=== PATIENT | male | born 1945 | race Caucasian/White ===

== ENCOUNTER → 2016-05-18 | Outpatient (CLI) | payer BC ==
[~2016-05-18] MED LIST: AMOX500C3 PO; ASPI81TA28 PO; LISI-461 PO; PSYL55.43 PO; SIMV5TAB2 PO; ZNTT/150 PO
== END | disposition home or self-care (01) ==
LOC: C.LABBC 10:20
PROVIDERS: ATTEND Internal Medicine Geriatric Medicine
DX: Z11.59 Encounter for screening for other viral diseases (principal)

== ENCOUNTER → 2016-05-24 | Outpatient (CLI) | payer BC ==
--- NOTE | 2016-05-24 10:40 | DIAGNOSTIC IMAGING REPORT ---
ULTRASOUND TESTES AND SCROTUM CLINICAL HISTORY: Testicular mass. COMPARISON STUDY: No priors. TECHNIQUE: Real-time, grayscale, and color Doppler sonography of the testes and scrotum is performed. Images are reviewed in the transverse and longitudinal planes. FINDINGS: The testes are normal in size and homogeneous in echotexture. The right testis measures 4.4 x 1.9 x 3.0 cm and the left testis measures 4.1 x 1.9 x 3.0 cm. No intratesticular mass is seen. A coarse calcification is noted in the left testis. Testicular blood flow is normal and symmetric. Normal Doppler waveforms are identified in both testes. The epididymal heads are normal in appearance. The right epididymal head measures 1.0 cm in length and the left epididymal head measures 1.4 cm in length. A 9 mm nodule is noted in the right epididymal tail. This demonstrates minimal internal flow on color imaging. No varicocele or hydrocele is seen. A scrotal darryl is noted on the left. IMPRESSION: 1. Unremarkable sonographic appearance of the testes. No testicular mass is seen. 2. There is an indeterminant 9 mm nodule in the right epididymal tail. This is pathologically indeterminant but statistically of low suspicion. Follow-up with urology is recommended. Precautionary 6 month follow-up ultrasound is recommended. Electronically signed by: Asher Villalpando M.D. 05/24/2016 10:38 AM Dictated Date/Time: 05/24/2016 10:36 AM
== END | disposition home or self-care (01) ==
LOC: C.ULTR 09:28
PROVIDERS: ATTEND Internal Medicine Geriatric Medicine
DX: Z11.59 Encounter for screening for other viral diseases (principal); N50.9 Disorder of male genital organs, unspecified

== ENCOUNTER → 2016-11-04 | Outpatient (CLI) | payer BC ==
[2016-11-04 16:36] LABS: BASO % 0.4 %; BASO ABS # 0.03 K/uL (0-0.2); COMPLETE YES; EOS % 10.6 %; HEMATOCRIT 41.7 % (42-52); IG% 0.1 %; LYMPH % 22.6 %; LYMPH ABS # 1.52 K/uL (1.2-3.4); MEAN CELL VOLUME 94.8 fL (80-100); MEAN CORPUSCULAR HEMOGLOBIN 32.3 pg (25-34); MEAN CORPUSCULAR HGB CONC 34.1 g/dl (32-36); MEAN PLATELET VOLUME 10.6 fL (7.4-10.4); MONO % 9.7 %; NEUT % 56.6 %; PLATELET COUNT 177 K/uL (130-400); WHITE BLOOD COUNT 6.72 K/uL (4.8-10.8)
[2016-11-04 16:47] LABS: ALT/SGPT 34 U/L (12-78); AST/SGOT 24 U/L (15-37); BLOOD UREA NITROGEN 26 mg/dl (7-18); CALCIUM 9.5 mg/dl (8.5-10.1); CARBON DIOXIDE 26 mmol/L (21-32); CHLORIDE 106 mmol/L (98-107); CHOLESTEROL 135 mg/dl (0-200); CREATININE 0.95 mg/dl (0.60-1.40); GLUCOSE 106 mg/dl (70-99); POTASSIUM 4.4 mmol/L (3.5-5.1); SODIUM 137 mmol/L (136-145)
[2016-11-04 16:58] LABS: ALB/GLOB RATIO 1.2 (0.9-2); ALKALINE PHOSPHATASE 76 U/L (45-117); CHOLESTEROL/HDL RATIO 2.3; HDL CHOLESTEROL 59 mg/dl; LDL CHOLESTEROL CALCULATED 62 mg/dl; PROSTATE SPECIFIC ANTIGEN 0.013 ng/ml (0.000-4.000); TRIGLYCERIDES 71 mg/dl (0-150); VERY LOW DENSITY LIPOPROT CALC 14 mg/dl
[2016-11-05 06:55] LABS: ESTIMATED AVERAGE GLUCOSE 126 mg/dl; HA1C FLAG Normal (Normal)
--- NOTE | 2016-11-16 13:39 | CODING QUERY MEDICAL NECESSITY ---
SUPPORTING DIAGNOSIS NEEDED A supporting diagnosis is required for the test/procedure performed on this patient in order for us to be reimbursed by the patient's insurance. Please provide a supporting diagnosis for the following test/procedure listed below next to the test name along with your signature. *If there is no additional diagnosis for this patient that would support the following test/procedure please document that below next to the test/procedure. Test(s)/Procedure(s) that require a supporting diagnosis: * VITAMIN D, 25-HYDROXY DIAGNOSIS: Provider Signature: Date: Thank you Syeda Li [employer] Once completed, please kindly fax back to [phone] For questions please call [phone]
== END | disposition home or self-care (01) ==
LOC: C.LABBC 14:34
PROVIDERS: ATTEND Internal Medicine Geriatric Medicine
DX: R73.9 Hyperglycemia, unspecified (principal); I10 Essential (primary) hypertension; I71.2 Thoracic aortic aneurysm, without rupture; I25.10 Atherosclerotic heart disease of native coronary artery without angina pectoris; E78.5 Hyperlipidemia, unspecified; C61 Malignant neoplasm of prostate

== ENCOUNTER → 2016-12-05 | Outpatient (CLI) | payer BC ==
--- NOTE | 2016-12-05 09:56 | DIAGNOSTIC IMAGING REPORT ---
(TESTICULAR) SCROTUM-CONT HISTORY: Mass. Nodule. C61 Adenocarcinoma of [id number] Mass of epididymis latex gurwinder COMPARISON: 05/24/2016 FINDINGS: Right testis: Uniform echogenicity. Maximum dimension 4.6 cm. Normal vascular flow. 7 mm nodule epididymal tail somewhat diminished prominence in the prior study. Left testis: Maximum dimension 3.8 cm. Normal vascular flow. Small hydrocele. Small varicocele. IMPRESSION: 1. Normal testes bilaterally. 2. Right epididymal tail nodule mildly diminished in volume from the prior study with a current maximum dimension of 7 mm. 3. Small left-sided hydrocele and varicocele unchanged The above report was generated using voice recognition software. It may contain grammatical, syntax or spelling errors. Electronically signed by: Jaylon Conrad M.D. 12/05/2016 9:55 AM Dictated Date/Time: 12/05/2016 9:52 AM
== END | disposition home or self-care (01) ==
LOC: C.ULTR 09:14
PROVIDERS: ATTEND Urology
DX: C61 Malignant neoplasm of prostate (principal); N50.9 Disorder of male genital organs, unspecified; I86.1 Scrotal varices; N43.3 Hydrocele, unspecified

== ENCOUNTER → 2016-12-12 | Outpatient (CLI) | payer BC ==
[~2016-12-12] MED LIST changes: +OPTIRAY 320 IV PRN
--- NOTE | 2016-12-12 12:28 | DIAGNOSTIC IMAGING REPORT ---
AORTIC ANEURYSM RETROPERI CLINICAL HISTORY: 71 years-old Male with Z00.00 Health BunyjmkxtfnM68.2 Aneurysm of thoracic aorta. Screening study for abdominal aortic aneurysm. COMPARISON: Ultrasound 03/26/2010 TECHNIQUE: Multiple real time sonographic images of the abdominal aorta were obtained assessing vogt-scale appearance as well as color. Doppler and spectral waveform analysis. FINDINGS: MEASUREMENTS: Proximal Aorta: 2.5 x 2.2 cm Mid Aorta: 2.0 x 2.0 cm Distal Aorta: 1.7 x 1.8 cm Right Common Iliac Artery: 1.1 cm Left Common Iliac Artery: 1.2 cm Pulsatile color Doppler flow and a normal spectral waveform are seen within the proximal aorta. Scattered mixed plaquing is seen throughout the dominant aorta. IMPRESSION: Atherosclerotic plaquing of the abdominal aorta without evidence of aneurysm. The above report was generated using voice recognition software. It may contain grammatical, syntax or spelling errors. Electronically signed by: Irving Goldman M.D. 12/12/2016 12:27 PM Dictated Date/Time: 12/12/2016 12:25 PM
--- NOTE | 2016-12-12 13:34 | DIAGNOSTIC IMAGING REPORT ---
CHEST COMBO ANGIOGRAPHY CLINICAL HISTORY: 71 years-old Male presenting with THORACIC AORTA ANEURYSM. TECHNIQUE: Multidetector CT angiography of the chest was performed after the administration of intravenous contrast. 3-D volumetric and/or maximum intensity projection (MIP) images were subsequently reconstructed for review. IV contrast: 119 mL of Optiray 320. A dose lowering technique was used consistent with the principles of ALARA (as low as reasonably achievable). COMPARISON: Noncontrast chest CT from 06/08/2011. CT DOSE (mGy.cm): The estimated cumulative dose is 502.98 mGy.cm. FINDINGS: Dowel Inspector topogram: Median sternotomy wires noted. Vasculature: Prosthetic aortic valve in place. Allowing for nongated technique, no evidence of dissection or acute aortic injury or postsurgical changes of the ascending aorta with the proximal aortic arch having a slightly larger diameter. The ascending aorta measures 3.0 cm in diameter versus the proximal arch, which measures 3.9 cm in diameter. This is similar to prior exam in 2012. Three-vessel arch configuration. Descending aorta normal. On soft tissue windows, normal thyroid and thoracic inlet. No axillary, supraclavicular, mediastinal, or hilar lymphadenopathy. Main pulmonary artery is normal in size. Normal heart size. No pericardial or pleural effusion. Upper abdomen normal. On lung windows, dependent changes in the right lower lobe likely atelectasis. Solid 7 mm nodule in the paramediastinal right lower lobe (series 7 image 167), previously 7 mm. No new pulmonary nodule. On bone windows, median sternotomy is well healed. Mild degenerative changes of the thoracic spine. IMPRESSION: 1. Postsurgical changes of the ascending aorta and prosthetic aortic valve. Mild discontinuity of the diameter of the osseous and aorta versus proximal arch similar to prior exam in 2012. No recurrent aneurysm. Allowing for nongated technique, no dissection or acute aortic injury. 2. Stable solid 7 mm pulmonary nodule in the right lower lobe, consistent with a benign etiology. No new pulmonary nodule. Electronically signed by: Paul Oden M.D. 12/12/2016 1:33 PM Dictated Date/Time: 12/12/2016 1:26 PM
== END | disposition home or self-care (01) ==
LOC: C.CTS 11:01
PROVIDERS: ATTEND Internal Medicine Cardiovascular Disease
DX: Z00.00 Encounter for general adult medical examination without abnormal findings (principal); I71.2 Thoracic aortic aneurysm, without rupture; R91.1 Solitary pulmonary nodule

== ENCOUNTER → 2017-01-27 | Outpatient (CLI) | payer BC ==
[~2017-01-27] MED LIST changes: -OPTIRAY 320 IV PRN
[2017-01-27 13:38] LABS: ALT/SGPT 36 U/L (12-78); AST/SGOT 24 U/L (15-37)
== END | disposition home or self-care (01) ==
LOC: C.LABBC 10:57
PROVIDERS: ATTEND Internal Medicine Cardiovascular Disease
DX: E78.5 Hyperlipidemia, unspecified (principal); I25.10 Atherosclerotic heart disease of native coronary artery without angina pectoris

== ENCOUNTER → 2017-11-02 | Outpatient (CLI) | payer BC ==
[~2017-11-02] MED LIST changes: +RANI150T85 PO; -ZNTT/150 PO
--- NOTE | 2017-11-02 09:08 | DIAGNOSTIC IMAGING REPORT ---
CHEST COMBO ANGIOGRAPHY CLINICAL HISTORY: 72 years-old Male presenting with history of thoracic aortic aneurysm repair, asymptomatic, follow-up. TECHNIQUE: Multidetector CT angiography of the chest was performed before and after the administration of intravenous contrast. 3-D volumetric and/or maximum intensity projection (MIP) images were subsequently reconstructed for review. IV contrast: 118 mL of Optiray 320. A dose lowering technique was used consistent with the principles of ALARA (as low as reasonably achievable). COMPARISON: 12/12/2016. CT DOSE (mGy.cm): The estimated cumulative dose is 397.81 mGy.cm. FINDINGS: [employer] Worker topogram: Median sternotomy wires with prosthetic aortic valve. Vasculature: The study is adequate for assessment of the aorta. Precontrast imaging demonstrates the prosthetic aortic valve as well as postsurgical changes of the ascending aorta. There is slight caliber change with the proximal aortic arch. The ascending aorta measures 3.2 cm in diameter versus the proximal arch, which measures 4 cm in diameter. This is similar to prior exam. Postcontrast imaging demonstrates a patent aorta without evidence of luminal irregularity or pseudoaneurysm. Origins of the aortic arch branch vessels patent. Descending thoracic aorta normal apart from mild noncalcified atherosclerotic plaque. Allowing for timing of the contrast bolus, no gross evidence of a filling defect within the pulmonary arteries to suggest embolus. Main pulmonary artery is not enlarged. No flattening of the interventricular septum. No intracardiac filling defect. No reflux of contrast into the hepatic veins. Remaining chest: On soft tissue windows, few small thyroid nodules. No axillary, supraclavicular, hilar, or mediastinal lymphadenopathy. Normal heart size. No pericardial or pleural effusion. Small focus of arterial hyperenhancement in the left hepatic lobe likely flash filling hemangioma (series 7 image 293), unchanged. On lung windows, minimal dependent changes likely atelectasis. Stable solid peripheral 7 mm right lower lobe nodule (series 7 image 173). This nodule has been stable consistent with benign etiology. Mild pleural parenchymal scarring at the apices greater on the left. No new pulmonary nodule. Airways patent. Airways patent. On bone windows, normal osseous structures. IMPRESSION: 1. No change in the postsurgical appearance of the ascending aorta status post aneurysm repair. No change in the slight caliber differential between the proximal aortic arch and ascending aorta. No acute aortic injury. Patent branch vessels. 2. No acute intrathoracic pathology. Electronically signed by: Paul Oden M.D. 11/02/2017 9:06 AM Dictated Date/Time: 11/02/2017 8:51 AM
== END | disposition home or self-care (01) ==
LOC: C.CTS 08:28
PROVIDERS: ATTEND Internal Medicine Cardiovascular Disease
DX: I71.2 Thoracic aortic aneurysm, without rupture (principal)

== ENCOUNTER → 2017-11-07 | Outpatient (CLI) | payer BC ==
[2017-11-07 15:26] LABS: BASO % 1.2 %; BASO ABS # 0.05 K/uL (0-0.2); EOS ABS # 0.21 K/uL (0-0.5); HEMOGLOBIN 14.2 g/dL (14.0-18.0); LYMPH % 25.2 %; LYMPH ABS # 1.06 K/uL (1.2-3.4); MEAN CELL VOLUME 95.9 fL (80-100); MEAN CORPUSCULAR HEMOGLOBIN 32.4 pg (25-34); MEAN CORPUSCULAR HGB CONC 33.8 g/dl (32-36); MONO % 16.9 %; MONO ABS # 0.71 K/uL (0.11-0.59); NEUT % 51.7 %; NEUT ABS # 2.18 K/uL (1.4-6.5); PLATELET COUNT 154 K/uL (130-400); RED CELL DISTRIBUTION WIDTH CV 12.5 % (11.5-14.5); WHITE BLOOD COUNT 4.21 K/uL (4.8-10.8)
[2017-11-07 15:57] LABS: ALKALINE PHOSPHATASE 96 U/L (45-117); ALT/SGPT 40 U/L (12-78); AST/SGOT 31 U/L (15-37); BLOOD UREA NITROGEN 21 mg/dl (7-18); CALCIUM 9.7 mg/dl (8.5-10.1); CARBON DIOXIDE 26 mmol/L (21-32); CHOLESTEROL 105 mg/dl (0-200); CREATININE 0.99 mg/dl (0.60-1.40); GLUCOSE 90 mg/dl (70-99); LDL CHOLESTEROL CALCULATED 32 mg/dl; POTASSIUM 4.2 mmol/L (3.5-5.1); SODIUM 136 mmol/L (136-145); TOTAL PROTEIN 7.1 gm/dl (6.4-8.2)
[2017-11-08 06:01] LABS: HEMOGLOBIN A1C 5.8 % (4.5-5.6)
== END | disposition home or self-care (01) ==
LOC: C.LAB 15:04
PROVIDERS: ATTEND Internal Medicine Geriatric Medicine
DX: R73.9 Hyperglycemia, unspecified (principal); G43.909 Migraine, unspecified, not intractable, without status migrainosus; I10 Essential (primary) hypertension; E78.5 Hyperlipidemia, unspecified; I71.2 Thoracic aortic aneurysm, without rupture; I25.10 Atherosclerotic heart disease of native coronary artery without angina pectoris

== ENCOUNTER 2023-09-06 10:03 | Inpatient (IN) ==
[2023-09-06 11:13] LABS: Basophils # (auto) 0.06 K/uL (0.00-0.20); Basophils % (auto) 0.8 %; Eosinophils # (auto) 0.18 K/uL (0.00-0.50); Eosinophils % (auto) 2.5 %; Hematocrit (blood only) 39.9 % (42.0-52.0); Hemoglobin 13.3 g/dl (14.0-18.0); Immature Granulocytes # (auto) 0.02 K/uL (0.01-0.20); Immature Granulocytes % (auto) 0.3 %; Lymphocytes % (auto) 15.2 %; Mean Corpuscular Hgb Conc 33.3 g/dL (32.0-36.0); Mean Corpuscular Volume 96.1 fL (80.0-100.0); Mean Platelet Volume 10.5 fL (9.4-12.4); Monocytes # (auto) 0.92 K/uL (0.11-0.59); Monocytes % (auto) 12.7 %; Neutrophils # (auto) 4.94 K/uL (1.40-6.50); Neutrophils % (auto) 68.5 %; Platelet Count 152 K/uL (130-400); RDW Coefficient of Variation 12.2 % (11.5-14.5); Red Blood Count 4.15 M/uL (4.70-6.10); White Blood Count 7.22 K/ul (4.8-10.8)
--- NOTE | 2023-09-06 11:23 | Emergency Department Note ---
Impression & Plan Septic olecranon bursitis of right elbow, Cellulitis, S/P aortic valve replacement with bioprosthetic valve ED Provider Note NAME: NIDHI FARRAR AGE: 78 SEX: M : 1945 ARRIVES VIA: Walk-In INFORMANT: Patient ED PROVIDER(S): Haresh Holly MD CHIEF COMPLAINT: Elbow infection, referrec. PLAN: Disposition: Admit MEDICAL DECISION MAKING: The patient is a pleasant 78-year-old gentleman with a past medical history of CAD, CKD, hypertension, hyperlipidemia, GERD, history of aortic valve replacement with bioprosthetic valve who presents to the emergency department via walk-in accompanied by his referred by [facility] after being seen for evaluation for cellulitis of his right elbow after his initial evaluation 2 days ago for the same where he was started on doxycycline. Patient reports his symptoms began a week or so ago with swelling of his elbow first then slowly with some redness developing and spread and tightness in his elbow. Reports there had been a carpio which he had picked at couple of days ago after he was initially seen and yellowish clear liquid had drained out significantly. He reports he had some more discharge this morning prior to arrival. He admits that he had picked at this with his bare hands and probably should not have done that he denies any fevers, chills, cough congestion, chest pain or shortness of breath. He denies any history of recurrent skin infections. On evaluation patient is no acute distress, afebrile with stable vital signs. His right elbow demonstrates swelling discretely of the right olecranon bursa with erythema extending to the distal upper arm and proximal forearm circumferentially. There is no overt induration. There is no crepitus. Patient did consent to aspiration which was performed per procedure note taking advantage of residual tract that had persisted correlating with the patient's report of a white pustule. Yellow cloudy fluid was obtained and sent for cell counts cultures. Cell counts demonstrate WBCs of 7000k with 90% polynuclear cells and so suggestive of septic bursitis. Given the patient's Progressive erythema he does agree with plan for admission for IV antibiotics. 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 WBC and platelets within normal limits. H/H similar to prior range values. There is no left shift. ESR is normal. CRP is mildly elevated at 2.8, nonspecific. Chemistry without metabolic acidosis. Electrolytes and LFTs are unremarkable. Procalcitonin is not elevated. Case was discussed with Dr. Mcclelland, [facility] hospitalist, who will evaluate the patient for admission. Triage Nursing notes reviewed and agree them. Prior/external medical records reviewed Vital Signs: reviewed Differential diagnosis: Cellulitis, abscess, MRSA infection, DVT, necrotizing fasciitis, dermatitis, drug eruption, allergic reaction, as well as other pathologies. ER treatment provided: See below. Diagnostics interpreted by me: Cardiac Monitoring: An order for continuous cardiac monitoring was placed and demonstrated normal sinus rhythm, 74 bpm, no ectopy. Laboratory studies: See below Imaging studies: See below Consultation(s): Dr. Mcclelland [facility] hospitalist HPI: The patient is a pleasant 78-year-old gentleman with a past medical history of CAD, CKD, hypertension, hyperlipidemia, GERD, history of aortic valve replacement with bioprosthetic valve who presents to the emergency department via walk-in accompanied by his referred by [facility] after being seen for evaluation for cellulitis of his right elbow after his initial evaluation 2 days ago for the same where he was started on doxycycline. Patient reports his symptoms began a week or so ago with swelling of his elbow first then slowly with some redness developing and spread and tightness in his elbow. Reports there had been a carpio which he had picked at couple of days ago after he was initially seen and yellowish clear liquid had drained out significantly. He reports he had some more discharge this morning prior to arrival. He admits that he had picked at this with his bare hands and probably should not have done that he denies any fevers, chills, cough congestion, chest pain or shortness of breath. He denies any history of recurrent skin infections. ROS: See above HPI for pertinent positives & negatives. A total of 10 systems reviewed and were otherwise negative. VITALS:See Below PHYSICAL EXAMINATION: GENERAL: Awake, alert, well-appearing, in no distress HENT: Normocephalic, atraumatic. Oropharynx unremarkable. EYES: Normal conjunctiva. Sclera non-icteric. NECK: Supple. No nuchal rigidity. FROM. No JVD. RESPIRATORY: Clear to auscultation. CARDIAC: Regular rate, normal rhythm. Extremities warm and well perfused. Pulses equal. ABDOMEN: Soft, non-distended. No tenderness to palpation. No rebound or guarding. No masses. MUSCULOSKELETAL: Chest examination reveals no tenderness. The back is symmetrical on inspection without obvious abnormality. There is no CVA tenderness to palpation. Right olecranon bursitis with swelling of the olecranon bursa and surrounding erythema extending to the distal upper arm and proximal forearm. There is mild warmth. No significant induration. LOWER EXTREMITIES: Calves are equal size bilaterally and non-tender. No edema. No discoloration. NEURO: Normal sensorium. No sensory or motor deficits noted. SKIN: No rash or jaundice noted. ED COURSE: Procedures: Olecranon bursal aspiration Indication: Bursitis Location: Right olecranon bursa Verbal consent was obtained. The skin was prepped with chlorhexadine and a sterile field set. Right olecranon bursa was entered with 18g needle and 8cc of yellow mildly cloudy fluid was removed. Detailed instructions and signs and symptoms of worsening infection reviewed with the patient. No complications and the patient tolerated the procedure well. Fluid sent for bursal fluid studies. Haresh Holly MD Past Med/Surg History Problem List (Updated 09/06/23 @ 12:40 by Paul Mcclelland MD) HLD (hyperlipidemia) Cellulitis (Acute) Septic olecranon bursitis of right elbow (Acute) Thyroid nodule Anemia, mild Contact dermatitis Solitary pulmonary nodule (Acute) S/P aortic valve replacement with bioprosthetic valve (Acute) Multiple thyroid nodules (Acute) Hyperglycemia (Acute) Glaucoma (Acute) Dyslipidemia (Acute) CAD in [place] artery (Acute) Aortic stenosis (Acute) Aneurysm of thoracic aorta (Acute) Adenocarcinoma of prostate (Acute) History of thoracic aortic aneurysm repair GERD (gastroesophageal reflux disease) (Chronic) Hypertension (Chronic) Medical History (Updated 09/06/23 @ 12:40 by Paul Mcclelland MD) History of needle biopsy History of bicuspid aortic valve Surgical History (Updated 09/06/23 @ 23:58 by Haresh Holly MD) H/O colonoscopy History of tonsillectomy and adenoidectomy History of strabismus surgery H/O inguinal hernia repair History of prostatectomy Family History Father Coronary heart disease Myocardial infarction Sister Diabetes Rheumatoid arthritis Thyroid disorder Mother Breast cancer Sister Breast cancer Uncle Prostate cancer Aunt Colon cancer Denies family history of Ovarian cancer Social History Smoking Status: Former smoker Tobacco Type: Smokeless Tobacco (Dip or Chew) Hx Alcohol Use: Yes Alcohol type: beer Alcohol Intake Frequency: 4 or More x per/Week Alcohol Intake Frequency Comment: before dinner Hx Substance Use: No Preferred Language: [place] Communication Ability: Effective Visual Impairment: No Limitations Hearing Ability: Normal 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 Operations Required: No Beliefs That Will Affect Care: None marital status: Current Living Situation: Spouse current occupational status: retired Feels Safe at Home: Yes Safety Concerns: Feels Safe At This Time Childhood Exposure to Second-Hand Smoke: Yes Dental Care, Regularly: Yes Physical Activity Frequency: Daily Seatbelt Use: always Sunscreen Use: Yes Assistive Devices: Glasses Allergies Allergies Allergy/AdvReac Type Severity Reaction Status Date / Time latex Allergy Unknown rash;itchin Verified 09/06/23 09:08 g neomycin Allergy Unknown rash and Verified 09/06/23 09:08 itching; ok w/bacitracin polymyxin B Allergy Unknown rash and Verified 09/06/23 09:08 itching; ok w/bacitracin shellfish derived Allergy Verified 09/06/23 09:08 shrimp AdvReac Unknown nausea;vomiting Verified 09/06/23 09:08 and indigestion tamsulosin AdvReac Unknown NAUSEA Verified 09/06/23 09:08 Home Meds Home Medications Medication Instructions Recorded Confirmed aspirin 81 mg tablet,delayed 81 mg PO DAILY 11/11/18 09/06/23 release cholecalciferol (vitamin D3) 25 2,000 unit PO DAILY 12/10/20 09/06/23 mcg (1,000 unit) capsule polyethylene glycol 3350 17 gram 17 g PO DAILY PRN Constipation 12/10/21 09/06/23 oral powder packet (Miralax) ascorbate calcium (vitamin C) 500 500 mg PO DAILY 10/04/22 09/06/23 mg tablet amoxicillin 500 mg capsule 2,000 mg PO .COMPLEX PRN Other 09/06/23 09/06/23 Previous Rx's Medication Instructions Recorded lisinopril 10 mg tablet 10 mg PO DAILY #90 tabs 09/25/23 atorvastatin 40 mg tablet 40 mg PO HS #90 tabs 02/01/23 doxycycline hyclate 100 mg capsule 100 mg PO BID 10 days #20 caps 09/04/23 Results & Data (ED) Vital Signs Vital Signs - 24 hr 09/06/23 10:06 09/06/23 10:50 09/06/23 11:42 Temperature 37.4 C Temperature Source Temporal Artery Scan Pulse Rate 74 66 Pulse Rate from SpO2 Sensor 66 Respiratory Rate 14 18 Blood Pressure 128/77 Blood Pressure Mean 94 Pulse Oximetry 95 96 95 Oxygen Delivery Method Room Air Room Air Sepsis New/Unexplained Change in Mental Status No Sepsis Action Taken by Nursing No Action Required 09/06/23 12:03 Temperature Temperature Source Pulse Rate 67 Pulse Rate from SpO2 Sensor 66 Respiratory Rate 21 Blood Pressure Blood Pressure Mean Pulse Oximetry 96 Oxygen Delivery Method Sepsis New/Unexplained Change in Mental Status Sepsis Action Taken by Nursing Laboratory Data Attestation: I reviewed the patient's lab results. 09/06/23 10:46 09/06/23 10:46 Lab Results 09/06/23 09/06/23 Range/Units 10:46 11:08 WBC 7.22 (4.8-10.8) K/ul RBC 4.15 L (4.70-6.10) M/uL Hgb 13.3 L (14.0-18.0) g/dl Hct 39.9 L (42.0-52.0) % MCV 96.1 (80.0-100.0) fL MCH 32.0 (25.0-34.0) pg MCHC 33.3 (32.0-36.0) g/dL RDW Std Deviation 43.0 (36.4-46.3) fL RDW Coeff of Karis 12.2 (11.5-14.5) % Plt Count 152 (130-400) K/uL MPV 10.5 (9.4-12.4) fL Immature Gran % (Auto) 0.3 % Neut % (Auto) 68.5 % Lymph % (Auto) 15.2 % Wood % (Auto) 12.7 % Eos % (Auto) 2.5 % Baso % (Auto) 0.8 % Neut # (Auto) 4.94 (1.40-6.50) K/uL Lymph # (Auto) 1.10 L (1.20-3.40) K/uL Wood # (Auto) 0.92 H (0.11-0.59) K/uL Eos # (Auto) 0.18 (0.00-0.50) K/uL Baso # (Auto) 0.06 (0.00-0.20) K/uL Immature Gran # (Auto) 0.02 (0.01-0.20) K/uL ESR 15 (0-20) mm/hr Sodium 135 L (136-145) mmol/L Potassium 4.0 (3.5-5.1) mmol/L Chloride 107 (98-107) mmol/L Carbon Dioxide 25 (21-32) mmol/L Anion Gap 3 (3-11) BUN 27 H (6-23) mg/dl Creatinine 0.99 (0.6-1.4) mg/dl Est Cr Clr Drug Dosing 61.5 ml/min Est GFR ( Amer) 84.2 ml/min Est GFR (Non-Af Amer) 72.6 ml/min BUN/Creatinine Ratio 27.3 H (10-20) Glucose 119 H (70-99(Fasting)) mg/dl Calcium 10.5 H (8.6-10.3) mg/dl Total Bilirubin 0.4 (0.2-1.0) mg/dl AST 23 (13-39) U/L ALT 23 (7-52) U/L Alkaline Phosphatase 63 (34-104) U/L C-Reactive Protein 2.80 H (0-0.5) mg/dl Total Protein 6.6 (6.0-8.3) gm/dl Albumin 4.1 (3.4-5.0) gm/dl Globulin 2.5 (2.5-4.0) gm/dl Albumin/Globulin Ratio 1.6 (0.9-2) Procalcitonin 0.03 (0-0.5) ng/ml Fluid Comment Synovial Source Right Elbow Synovial Color Yellow Synovial Appearance Cloudy Synovial WBC (Auto) 7615 H (0-200) /ul Synovial RBC (Auto) 4000 /uL Synovial Polynuclear % 90.4 % Synovial Mononuclear % 9.6 % Synovial Crystals Administered Medications Ampicillin Sodium/Sulbactam Sodium 3,000 mg/ Sodium Chloride 100 mls @ 100 mls/hr IV Q6H [facility] Stop: 09/08/23 17:59 Last Admin: 09/06/23 23:48 Dose: 100 mls/hr Documented By: Infusion: 09/06/23 21:03 Dose: Infused Documented By: Admin: 09/06/23 18:13 Dose: 100 mls/hr Documented By: HARI Discontinued Medications Piperacillin Sod/Tazobactam Sod (Zosyn) 4.5 gm in 100 mls @ 200 mls/hr IV NOW ONE Stop: 09/06/23 11:47 Last Infusion: 09/06/23 12:15 Dose: Infused Documented By: JEAN PIERRE Admin: 09/06/23 11:40 Dose: 200 mls/hr Documented By: JEAN PIERRE Daptomycin 425 mg/ Syringe 8.5 mls @ 4.25 mls/min IV NOW STA; Protocol Stop: 09/06/23 11:19 Last Admin: 09/06/23 11:42 Dose: 4.25 mls/min Documented By: JEAN PIERRE Imaging Data Radiologist's Impression: Elbow X-Ray 09/06/23 11:22 XR elbow RT min 3V routine CLINICAL HISTORY: ?septic bursitis TECHNIQUE: 3 views of the right elbow were obtained. Comparison: None available at the time of this dictation. FINDINGS: There is no evidence of an acute fracture. Degenerative changes are seen in the elbow joint. There is no prominence of the anterior or posterior fat pads to suggest an effusion. No soft tissue abnormality is seen. IMPRESSION: No acute bony abnormality. No joint effusion is seen. ACT 112: Negative or not required by law. Electronically signed by: Alvino Coffey M.D. 09/06/2023 11:54 AM Discharge Plan Visit Data Chief Complaint: Elbow Injury/Pain Stated Complaint: R ELBOW INFECTION, NEEDS IV, REF BY DOC ED Provider: Haresh Holly Discharge Problem: Septic olecranon bursitis of right elbow, Cellulitis, S/P aortic valve replacement with bioprosthetic valve Patient Disposition: Admitted As Inpatient Discharge Instructions Interventions: ED Discharge Assessment Last Done: 09/06/23 15:42 Discharge Problem: Cellulitis Qualifiers: Site of cellulitis: extremity Site of cellulitis of extremity: upper extremity Laterality: right Qualified Code(s): L03.113 - Cellulitis of right upper limb
[2023-09-06 11:25] LABS: Albumin Globulin Ratio 1.6 (0.9-2); Albumin Level 4.1 gm/dl (3.4-5.0); BUN Creatinine Ratio 27.3 (10-20); Bilirubin,Total 0.4 mg/dl (0.2-1.0); C Reactive Protein 2.8 mg/dl (0-0.5); Calcium 10.5 mg/dl (8.6-10.3); Creatinine Clr Calc Pharmacy 61.5 ml/min; Est GFR (African American) 84.2 ml/min; Est GFR (Non-African American) 72.6 ml/min; Globulin 2.5 gm/dl (2.5-4.0); Total Protein 6.6 gm/dl (6.0-8.3)
[2023-09-06] MEDS: PIPERACILLIN/TAZOBACTAM 4.5 GM/100 ML BAG IV ONE (11:40)
[2023-09-06] MEDS: DAPTOmycin 425 MG in SYRINGE 0 ML IV STA (11:42)
--- NOTE | 2023-09-06 11:55 | XRay Report ---
XR elbow RT min 3V routine CLINICAL HISTORY: ?septic bursitis TECHNIQUE: 3 views of the right elbow were obtained. Comparison: None available at the time of this dictation. FINDINGS: There is no evidence of an acute fracture. Degenerative changes are seen in the elbow joint. There is no prominence of the anterior or posterior fat pads to suggest an effusion. No soft tissue abnormali ty is seen. IMPRESSION: No acute bony abnormality. No joint effusion is seen. ACT 112: Negative or not required by law. Electronically signed by: Alvino Coffey M.D. 09/06/2023 11:54 AM
[2023-09-06 12:17] LABS: Appearance Synovial Fluid Cloudy; Color Synovial Fluid Yellow; Mononuclear WBC Synovial 9.6 %; Polynuclear WBC Synovial 90.4 %; RBC Synovial Fluid Auto 4000 /uL; Source Synovial Fluid Right Elbow; WBC Synovial Fluid Auto 7615 /ul (0-200)
--- NOTE | 2023-09-06 12:35 | History & Physical Report ---
Date of Service September 06, 2023 Assessment & Plan (1) Septic olecranon bursitis of right elbow: Plan: Right olecranon bursitis Fluid aspirate pending culture. Initial fluid was with 7615 white blood cells consistent with infectious bursitis No leukocytosis Elbow x-ray is without bony abnormality or joint effusion Admitted on Zosyn/daptomycin pending culture results. Patient is at increased risk of graft seeding due to his history of aortic aneurysm repair and bioprosthetic AVR, recommend broad coverage including MRSA coverage while cultures and bc pending (2) S/P aortic valve replacement with bioprosthetic valve: Plan: Bicuspid AV No acute cardiac symptoms. He is at increased risk of endocarditis for bacteremia. BC were ordered and are pending (3) HLD (hyperlipidemia): Plan: Hyperlipidemia Statin held while on daptomycin Chronic stable issues History of AAA s/p repair: On every 2 year surveillance. No\shoulder blade plain, no acute symptoms. Continue outpatient surveillance. Hypertension: Well-controlled, continue lisinopril History of CAD: No acute cardiac symptoms, no preceding anginal/stiff neck symptoms Plan DVT prophylaxis: Lovenox Disposition: Medical s full code Diet: Heart healthy CODE STATUS: Medical/surgical History of Present Illness Primary Care Provider: Esteban Mukherjee MD Mr. Madrigal is a 78-year-old male with past medical history of bioprosthetic AV replacement, CAD, prostate adenocarcinoma, GERD, hypertension, past thoracic aortic aneurysm repair, and thyroid nodules presents on referral from [facility] urgent care for right elbow cellulitis failing outpatient treatment and with continued expansion over the last 7 days. Patient was suspected to have right olecranon bursitis while in the ER, this was aspirated and a cc of cloudy fluid was removed and sent for culture/analysis. Carlos Alberto was seen at the bedside with his . He reports his symptoms actually started 3 days ago, on Monday. Noted some swelling and pain at his elbow which gradually worsened and yesterday pulled a small amount of yellow crust off and it had purulent drainage. Elbow has continued to be warm, red, and tender. He has not had fevers chills or sweats. It is tender with movement but feels greatly improved following his bursa aspiration. He had been on doxycycline for approximately 2 days, but notes that had a delay in filling this prescription. Denies antibiotic allergies. He has a history of aortic valve replacement and aorta repair, both are doing well on every 2 year surveillance. He says he is very active and walks at least a mile a day with no chest pain, chest pressure, or limiting dyspnea symptoms recently. He is a former smoker, no recent use. He drinks 1-3 light beers per day, no history of alcohol withdrawal or difficulty going without alcohol. Full code. Allergies Allergy/AdvReac Type Severity Reaction Status Date / Time latex Allergy Unknown rash;itchin Verified 09/06/23 09:08 g neomycin Allergy Unknown rash and Verified 09/06/23 09:08 itching; ok w/bacitracin polymyxin B Allergy Unknown rash and Verified 09/06/23 09:08 itching; ok w/bacitracin shellfish derived Allergy Verified 09/06/23 09:08 shrimp AdvReac Unknown nausea;vomiting Verified 09/06/23 09:08 and indigestion tamsulosin AdvReac Unknown NAUSEA Verified 09/06/23 09:08 Home Medications Medication Instructions Recorded Confirmed Type aspirin 81 mg tablet,delayed 81 mg PO DAILY 11/11/18 09/06/23 History release cholecalciferol (vitamin D3) 25 2,000 unit PO DAILY 12/10/20 09/06/23 History mcg (1,000 unit) capsule polyethylene glycol 3350 17 gram 17 g PO DAILY PRN 12/10/21 09/06/23 History oral powder packet (Miralax) amoxicillin 500 mg capsule 2,000 mg (4 x 500 mg) PO .COMPLEX 09/07/22 09/06/23 Rx #4 caps ascorbate calcium (vitamin C) 500 500 mg PO DAILY 10/04/22 09/06/23 History mg tablet lisinopril 10 mg tablet 10 mg PO DAILY #90 tabs 12/12/22 09/06/23 Rx atorvastatin 40 mg tablet 40 mg PO HS #90 tabs 02/01/23 09/06/23 Rx doxycycline hyclate 100 mg capsule 100 mg PO BID 10 days #20 caps 09/04/23 09/06/23 Rx Past Med/Surg History Problem List (Updated 09/06/23 @ 12:40 by Paul Mcclelland MD) HLD (hyperlipidemia) Cellulitis (Acute) Septic olecranon bursitis of right elbow (Acute) Thyroid nodule Anemia, mild Contact dermatitis Solitary pulmonary nodule (Acute) S/P aortic valve replacement with bioprosthetic valve (Acute) Multiple thyroid nodules (Acute) Hyperglycemia (Acute) Glaucoma (Acute) Dyslipidemia (Acute) CAD in [place] artery (Acute) Aortic stenosis (Acute) Aneurysm of thoracic aorta (Acute) Adenocarcinoma of prostate (Acute) History of thoracic aortic aneurysm repair GERD (gastroesophageal reflux disease) (Chronic) Hypertension (Chronic) Medical History (Updated 09/06/23 @ 12:40 by Paul Mcclelland MD) History of needle biopsy History of bicuspid aortic valve Surgical History H/O colonoscopy History of tonsillectomy and adenoidectomy History of strabismus surgery H/O inguinal hernia repair History of prostatectomy Family History Father Coronary heart disease Myocardial infarction Sister Diabetes Rheumatoid arthritis Thyroid disorder Mother Breast cancer Sister Breast cancer Uncle Prostate cancer Aunt Colon cancer Denies family history of Ovarian cancer Social History Smoking Status: Former smoker Tobacco Type: Smokeless Tobacco (Dip or Chew) Hx Alcohol Use: Yes Alcohol type: beer Alcohol Intake Frequency: 4 or More x per/Week Alcohol Intake Frequency Comment: before dinner Hx Substance Use: No Preferred Language: Guatemalan Visual Impairment: No Limitations Hearing Ability: Normal Beliefs That Will Affect Care: None marital status: Current Living Situation: Spouse current occupational status: retired Feels Safe at Home: Yes Childhood Exposure to Second-Hand Smoke: Yes Dental Care, Regularly: Yes Physical Activity Frequency: Daily Seatbelt Use: always Sunscreen Use: Yes Physical Exam Physical Exam: General: A&Ox3. NAD. Cooperative. HEENT: Atraumatic, normocephalic. Pulm: CTAB A&P. -wheezes, -rales, -rhonchi. Symmetrical chest rise. No increased work of breathing. No respiratory distress. Cardiac: RRR, soft sm. Radial pulses intact and symmetrical. Abdominal: Nontender, nondistended, soft. BS present. Extremities: Right elbow with surrounded demarcated erythema, mild warmth, and tenderness to palpation. No discharge at time of assessment. Passive elbow flexion/extension is without pain. Sensation to fingertips is intact, radial pulse is intact. No streaking erythema is noted Results & Data Results & Data Vital Signs (Past 12 Hours) Vital Signs Temp Pulse Resp BP Pulse Ox O2 Del Method 09/06/23 10:50 96 Room Air 09/06/23 10:06 37.4 C 74 14 128/77 95 Room Air PG Care Time/CCT Total # of Minutes Spent Total Time Spent with Patient: Total time spent is greater than 50% in coordination of care (as documented) at patient's floor/unit and/or counseling patient: Coding Level of Care Code 50057 INT INP/OBS CARE 3/75MIN Diagnoses Septic olecranon bursitis of right elbow M71.121 S/P aortic valve replacement with bioprosthetic valve Z95.3 HLD (hyperlipidemia) E78.5
[2023-09-06] MEDS ORDERED: POLYETHYLENE (MIRALAX) 17 GM PACK PO PRN (16:22)
[2023-09-06] MEDS ORDERED: ACETAMINOPHEN 325 MG TAB PO PRN (16:22)
[2023-09-06] MEDS: AMPICILLIN/SULBACTAM SOD 3,000 MG in SODIUM CHLOR 0.9% MINI-B 100 ML IV SCH (18:13)
[2023-09-07] MEDS: ENOXAPARIN INJ 40 MG/0.4 ML SYR SQ SCH (07:40)
[2023-09-07] MEDS: lisinopril 10 MG TAB PO SCH (07:40)
[2023-09-07] MEDS: ASPIRIN 81 MG ECTAB PO SCH (07:40)
[2023-09-07 07:53] LABS: Basophils # (auto) 0.05 K/uL (0.00-0.20); Basophils % (auto) 0.7 %; Eosinophils # (auto) 0.31 K/uL (0.00-0.50); Eosinophils % (auto) 4.3 %; Hematocrit (blood only) 37.7 % (42.0-52.0); Hemoglobin 12.8 g/dl (14.0-18.0); Immature Granulocytes # (auto) 0.01 K/uL (0.01-0.20); Immature Granulocytes % (auto) 0.1 %; Lymphocytes # (auto) 1.22 K/uL (1.20-3.40); Lymphocytes % (auto) 17.1 %; Mean Corpuscular Hemoglobin 32.4 pg (25.0-34.0); Mean Corpuscular Volume 95.4 fL (80.0-100.0); Mean Platelet Volume 10.4 fL (9.4-12.4); Monocytes # (auto) 0.77 K/uL (0.11-0.59); Monocytes % (auto) 10.8 %; Neutrophils # (auto) 4.77 K/uL (1.40-6.50); Platelet Count 145 K/uL (130-400); RDW Coefficient of Variation 12.1 % (11.5-14.5); RDW Standard Deviation 42.3 fL (36.4-46.3); Red Blood Count 3.95 M/uL (4.70-6.10); White Blood Count 7.13 K/ul (4.8-10.8)
[2023-09-07 08:07] LABS: BUN Creatinine Ratio 21.9 (10-20); C Reactive Protein 1.99 mg/dl (0-0.5); Calcium 9.9 mg/dl (8.6-10.3); Est GFR (African American) 78.4 ml/min; Est GFR (Non-African American) 67.7 ml/min; Potassium 3.9 mmol/L (3.5-5.1)
[2023-09-07] MEDS: DAPTOmycin 275 MG in SYRINGE 0 ML IV SCH (11:48)
--- NOTE | 2023-09-07 13:23 | Hospitalist Progress Note ---
Date of Service September 07, 2023 Assessment & Plan (1) Septic olecranon bursitis of right elbow: Plan: Right olecranon bursitis S/p fluid aspiration in the ED. Initial fluid was with 7615 white blood cells consistent with infectious bursitis - WC: Staphylococcus species, sensitivities pending - blood cultures: Negative at 24 hours Elbow x-ray is without bony abnormality or joint effusion continue on Zosyn/daptomycin pending culture results. - Patient is at increased risk of graft seeding due to his history of aortic aneurysm repair and bioprosthetic AVR, recommend broad coverage including MRSA coverage while cultures pending Ortho consulted to evaluate for need for surgical drainage (2) S/P aortic valve replacement with bioprosthetic valve: Plan: Bicuspid AV No acute cardiac symptoms. He is at increased risk of endocarditis for bacteremia. BC were ordered and are pending (3) HLD (hyperlipidemia): Plan: Hyperlipidemia Statin held while on daptomycin Chronic stable issues History of AAA s/p repair: On every 2 year surveillance. No\shoulder blade plain, no acute symptoms. Continue outpatient surveillance. Hypertension: Well-controlled, continue lisinopril History of CAD: No acute cardiac symptoms, no preceding anginal/stiff neck symptoms Plan DVT prophylaxis: Lovenox Disposition: continued inpatient stay waiting cultures and sensitivities Admission and Anticipated Discharge Date Admission Date: September 06, 2023 Supervising Physician Co-Signing Physician Notes Attending Attestation - Chart reviewed, care plan d/w FERNIE Kirk. I agree w/ the [place] components of her documentation. Appreciate orthopedic consultation. Ilir Hampton MD Subjective patient seen lying in bed. Overall reports feeling well. Does note that he had a scab about 2 weeks ago at his elbow that he had picked a few times over the last 2 weeks. 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 May have had a tick bite about 1 month ago good appetite. No fevers or chills. Review of Systems Review of Systems: All systems reviewed & are unremarkable except as noted in Subjective Physical Exam Physical Exam: General: NAD, VS as above Resp: normal respiratory effort, lungs clear to auscultation CV: RRR, Extremities: Moves all extremities, Right elbow with swelling and tenderness to the touch. Erythema extends slightly outside of the demarcated line at the distal edge but is improved in other areas. Suspect this is related to gravity. No streaking or signs of DVT. Neuro: A&O x3, Skin: intact, no lesions noted Results & Data Results & Data Vital Signs (Past 12 Hours) Vital Signs Temp Pulse Resp BP Pulse Ox O2 Del Method 09/07/23 07:18 36.8 C 68 18 99/63 L 95 Room Air Laboratory Results CBC and chemistry reviewed CRP reviewed Wound cultures and blood cultures reviewed Diagnostic Findings elbow x-ray reviewed PG Care Time/CCT Total # of Minutes Spent Total Time Spent with Patient: Total time spent is greater than 50% in coordination of care (as documented) at patient's floor/unit and/or counseling patient: Coding Level of Care Code 28977 SUB INP/OBS CARE 2/35MIN Diagnoses Septic olecranon bursitis of right elbow M71.121 S/P aortic valve replacement with bioprosthetic valve Z95.3 HLD (hyperlipidemia) E78.5
--- NOTE | 2023-09-07 13:32 | Orthopedic Consultation ---
Date of Service September 07, 2023 Assessment & Plan (1) Septic olecranon bursitis of right elbow: I discussed diagnosis and treatment options with him at bedside. He is currently on daptomycin. He did eat lunch today. I think it is reasonable to proceed with a possible irrigation debridement of the right olecranon bursa tomorrow. Will keep him n.p.o. past midnight tonight. Will place him on the OR schedule for tomorrow. Will see how he does overnight with the IV antibiotics. History of Present Illness Reason for Consultation: Right olecranon septic bursitis Requesting Physician: . Attending Physician: Ilir Hampton MD Krystyna is a pleasant 78-year-old male has been having a several day history of worsening right elbow pain. He noticed a lot of swelling of his right elbow about 3 days ago. It became larger and more uncomfortable. He came to the emergency room where the large olecranon bursa was aspirated. There was purulent fluid. It was sent for cultures. The cultures have grown out a staph species. He still having some pain in the elbow. Orthopedics was consulted to evaluate and treat.. Allergies Allergy/AdvReac Type Severity Reaction Status Date / Time latex Allergy Unknown rash;itchin Verified 09/06/23 09:08 g neomycin Allergy Unknown rash and Verified 09/06/23 09:08 itching; ok w/bacitracin polymyxin B Allergy Unknown rash and Verified 09/06/23 09:08 itching; ok w/bacitracin shellfish derived Allergy Verified 09/06/23 09:08 shrimp AdvReac Unknown nausea;vomiting Verified 09/06/23 09:08 and indigestion tamsulosin AdvReac Unknown NAUSEA Verified 09/06/23 09:08 Home Medications Medication Instructions Recorded Confirmed Type aspirin 81 mg tablet,delayed 81 mg PO DAILY 11/11/18 09/06/23 History release cholecalciferol (vitamin D3) 25 2,000 unit PO DAILY 12/10/20 09/06/23 History mcg (1,000 unit) capsule polyethylene glycol 3350 17 gram 17 g PO DAILY PRN Constipation 12/10/21 09/06/23 History oral powder packet (Miralax) ascorbate calcium (vitamin C) 500 500 mg PO DAILY 10/04/22 09/06/23 History mg tablet lisinopril 10 mg tablet 10 mg PO DAILY #90 tabs 12/12/22 09/06/23 Rx atorvastatin 40 mg tablet 40 mg PO HS #90 tabs 02/01/23 09/06/23 Rx doxycycline hyclate 100 mg capsule 100 mg PO BID 10 days #20 caps 09/04/23 09/06/23 Rx amoxicillin 500 mg capsule 2,000 mg PO .COMPLEX PRN Other 09/06/23 09/06/23 History Past Med/Surg History Problem List HLD (hyperlipidemia) Cellulitis (Acute) Septic olecranon bursitis of right elbow (Acute) Thyroid nodule Anemia, mild Contact dermatitis Solitary pulmonary nodule (Acute) S/P aortic valve replacement with bioprosthetic valve (Acute) Multiple thyroid nodules (Acute) Hyperglycemia (Acute) Glaucoma (Acute) Dyslipidemia (Acute) CAD in [place] artery (Acute) Aortic stenosis (Acute) Aneurysm of thoracic aorta (Acute) Adenocarcinoma of prostate (Acute) History of thoracic aortic aneurysm repair GERD (gastroesophageal reflux disease) (Chronic) Hypertension (Chronic) Medical History History of needle biopsy History of bicuspid aortic valve Surgical History H/O colonoscopy History of tonsillectomy and adenoidectomy History of strabismus surgery H/O inguinal hernia repair History of prostatectomy Family History Father Coronary heart disease Myocardial infarction Sister Diabetes Rheumatoid arthritis Thyroid disorder Mother Breast cancer Sister Breast cancer Uncle Prostate cancer Aunt Colon cancer Denies family history of Ovarian cancer Social History Smoking Status: Former smoker Tobacco Type: Smokeless Tobacco (Dip or Chew) Hx Alcohol Use: Yes Alcohol type: beer Alcohol Intake Frequency: 4 or More x per/Week Alcohol Intake Frequency Comment: before dinner Hx Substance Use: No Preferred Language: Montserratian Communication Ability: Effective Visual Impairment: No Limitations Hearing Ability: Normal 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 Physical Exam On physical examination of the right elbow, there is a large fluctuant olecranon bursitis. There is some redness around the area and streaking up his forearm. He has good range of motion of his elbow without much pain.. Constitutional WD/WN, vitals as above Eyes PERRL, conjunctivae normal, anicteric sclerae ENMT external ear and nose normal, oropharynx normal Neck trachea midline, no thyromegaly Respiratory normal respiratory effort Cardiovascular RRR, no murmur, no edema Gastrointestinal (Abdomen) normal bowel sounds, soft, nontender, no hepatosplenomegaly Psychiatric A+Ox3, euthymic affect Results & Data Results & Data Laboratory Results . Diagnostic Findings X-rays of the right elbow are reviewed and show no evidence of fracture.. PG Care Time/CCT Total # of Minutes Spent Total Time Spent with Patient: Total time spent is greater than 50% in coordination of care (as documented) at patient's floor/unit and/or counseling patient: Coding Level of Care Code 56668 IN/OBS CONSULT LVL 4,60M (57 - DECISION FOR SURGERY) Diagnoses Septic olecranon bursitis of right elbow M71.121
[2023-09-08 07:30] LABS: Basophils # (auto) 0.05 K/uL (0.00-0.20); Basophils % (auto) 0.8 %; Eosinophils % (auto) 6.2 %; Hematocrit (blood only) 38.1 % (42.0-52.0); Hemoglobin 12.8 g/dl (14.0-18.0); Immature Granulocytes # (auto) 0.02 K/uL (0.01-0.20); Immature Granulocytes % (auto) 0.3 %; Lymphocytes # (auto) 1.59 K/uL (1.20-3.40); Lymphocytes % (auto) 24.5 %; Mean Corpuscular Hgb Conc 33.6 g/dL (32.0-36.0); Mean Corpuscular Volume 95.3 fL (80.0-100.0); Mean Platelet Volume 10.3 fL (9.4-12.4); Monocytes # (auto) 0.71 K/uL (0.11-0.59); Neutrophils # (auto) 3.71 K/uL (1.40-6.50); Neutrophils % (auto) 57.2 %; Platelet Count 152 K/uL (130-400); RDW Standard Deviation 42.5 fL (36.4-46.3); White Blood Count 6.48 K/ul (4.8-10.8)
--- NOTE | 2023-09-08 07:44 | Anesthesiology Consultation ---
Date of Service September 08, 2023 Assessment & Plan (1) Encounter for pre-operative examination: Chart Review Chart Review: Acceptable Risk for Surgery History Surgery Operation Date: 09/08/23 12:30 Proposed Procedures p Right Elbow Septic Bursitis Incision and Drainage - Jorge Luis Marley MD Height/Weight Height: 5 ft 9 in Weight: 76.2 kg Allergies Allergy/AdvReac Type Severity Reaction Status Date / Time latex Allergy Unknown rash;itchin Verified 09/06/23 09:08 g neomycin Allergy Unknown rash and Verified 09/06/23 09:08 itching; ok w/bacitracin polymyxin B Allergy Unknown rash and Verified 09/06/23 09:08 itching; ok w/bacitracin shellfish derived Allergy Verified 09/06/23 09:08 shrimp AdvReac Unknown nausea;vomiting Verified 09/06/23 09:08 and indigestion tamsulosin AdvReac Unknown NAUSEA Verified 09/06/23 09:08 Medications Home Medications Medication Instructions Recorded Confirmed Last Taken aspirin 81 mg tablet,delayed 81 mg PO DAILY 11/11/18 09/06/23 Unknown release cholecalciferol (vitamin D3) 25 2,000 unit PO DAILY 12/10/20 09/06/23 Unknown mcg (1,000 unit) capsule polyethylene glycol 3350 17 gram 17 g PO DAILY PRN Constipation 12/10/21 09/06/23 Unknown oral powder packet (Miralax) ascorbate calcium (vitamin C) 500 500 mg PO DAILY 10/04/22 09/06/23 Unknown mg tablet lisinopril 10 mg tablet 10 mg PO DAILY #90 tabs 12/12/22 09/06/23 Unknown atorvastatin 40 mg tablet 40 mg PO HS #90 tabs 02/01/23 09/06/23 Unknown doxycycline hyclate 100 mg capsule 100 mg PO BID 10 days #20 caps 09/04/23 09/06/23 Unknown amoxicillin 500 mg capsule 2,000 mg PO .COMPLEX PRN Other 09/06/23 09/06/23 Unknown Active Medications Generic Name Dose Route Start Last Admin Trade Name Freq PRN Reason Stop Dose Admin Aspirin 81 mg 09/07/23 09:00 09/07/23 07:40 Aspirin 81 Mg Ectab PO 10/07/23 08:59 81 mg DAILY PHYLICIA Administration Enoxaparin Sodium 40 mg 09/07/23 09:00 09/07/23 07:40 Enoxaparin Inj 40 Mg/0.4 Ml Syr SQ 10/07/23 08:59 40 mg Q24H PHYLICIA Administration Ampicillin Sodium/Sulbactam 100 mls @ 100 mls/hr 09/06/23 18:00 09/08/23 06:37 Sodium 3,000 mg/ Sodium IV 09/08/23 17:59 Infused Chloride Q6H PHYLICIA Infusion Daptomycin 275 mg/ Syringe 5.5 mls @ 2.75 mls/min 09/07/23 11:30 09/07/23 11:48 IV 09/14/23 11:29 2.75 mls/min Q24H PHYLICIA Administration Protocol Lisinopril 10 mg 09/07/23 09:00 09/07/23 07:40 Lisinopril 10 Mg Tab PO 10/07/23 08:59 10 mg DAILY PHYLICIA Administration Past Medical History Medical History (Updated 09/08/23 @ 07:45 by Kalin Salazar MD) Thyroid nodule Solitary pulmonary nodule Hyperglycemia Glaucoma CAD in [place] artery Hypertension History of bicuspid aortic valve Past Family History Family History Father Coronary heart disease Myocardial infarction Sister Diabetes Rheumatoid arthritis Thyroid disorder Mother Breast cancer Sister Breast cancer Uncle Prostate cancer Aunt Colon cancer Denies family history of Ovarian cancer Past Surgical History Surgical History (Updated 09/08/23 @ 07:43 by Kalin Salazar MD) S/P aortic valve replacement with bioprosthetic valve History of thoracic aortic aneurysm repair H/O colonoscopy History of tonsillectomy and adenoidectomy History of strabismus surgery H/O inguinal hernia repair History of prostatectomy Social History Smoking Status: Former smoker Hx Alcohol Use: Yes Alcohol type: beer alcohol intake frequency: 0-2 drinks per day Hx Substance Use: No substance use type: does not use Physical Exam Vital Signs Last Vital Signs Temp 36.6 C 09/08/23 07:24 Pulse 63 09/08/23 07:24 Resp 18 09/08/23 07:24 BP 106/69 09/08/23 07:24 Pulse Ox 96 09/08/23 07:24 O2 Del Method Room Air 09/08/23 07:24 Testing Laboratory Results 09/08/23 06:38 09/06/23 10:46 Aerobic Blood Culture - Preliminary Blood No growth in Aerobic bottle after 24 hours. Anaerobic Blood Culture - Preliminary No growth in Anaerobic bottle after 24 hours. 09/06/23 10:43 Aerobic Blood Culture - Preliminary Blood No growth in Aerobic bottle after 24 hours. Anaerobic Blood Culture - Preliminary No growth in Anaerobic bottle after 24 hours. 09/06/23 11:08 Gram Stain - Final Elbow,Right Aerobic and Anaerobic Culture - Preliminary Staphylococcus species Laboratory Tests 06/20/23 09:10 Hemoglobin A1c 5.9 H Echocardiogram Date: 01/05/23 EF: 60-65% LV Function: normal normally functioning bioprosthetic aortic valve
[2023-09-08 08:02] LABS: BUN Creatinine Ratio 26.4 (10-20); Calcium 10.1 mg/dl (8.6-10.3); Creatinine Clr Calc Pharmacy 55.3 ml/min; Est GFR (African American) 74.1 ml/min; Potassium 4.2 mmol/L (3.5-5.1)
[2023-09-08] MEDS ORDERED: DEXAMETHASONE SOD INJ 4 MG/ML VIAL ONE (11:29)
[2023-09-08] MEDS ORDERED: PROPOFOL IV EMULSION 10 MG/ML 20 ML VIAL IV ONE ×2 (11:29→14:23)
[2023-09-08] MEDS ORDERED: ONDANSETRON INJ 2 MG/ML 2 ML VIAL ONE (11:29)
[2023-09-08] MEDS ORDERED: fentaNYL citrate PF 100 MCG/2 ML VIAL ONE ×2 (11:29→13:57)
[2023-09-08] MEDS: LACTATED RINGER'S 1,000 ML IV SCH (12:32)
[2023-09-08] MEDS ORDERED: ONDANSETRON INJ 2 MG/ML 2 ML VIAL IV PRN ×2 (12:47→15:37)
[2023-09-08] MEDS ORDERED: HYDROmorphone INJ 1 MG/ML SYRINGE IV PRN (12:47)
[2023-09-08] MEDS ORDERED: KETOROLAC TROMETHAMINE 15 MG/ML VIAL IV PRN (12:47)
[2023-09-08] MEDS ORDERED: ATROPINE SULFATE 0.1 MG/ML 10ML SYR IV PRN (12:47)
--- NOTE | 2023-09-08 13:18 | History & Physical Bridge Note ---
Date of Service September 08, 2023 History & Physical Bridge Note I have examined the patient, reviewed the History & Physical and in the interval since the performance of the History & Physical I have noted the following changes of clinical significance: no changes noted
--- NOTE | 2023-09-08 14:04 | Hospitalist Progress Note ---
Date of Service September 08, 2023 Assessment & Plan (1) Septic olecranon bursitis of right elbow: Plan: Right olecranon bursitis S/p fluid aspiration in the ED. Initial fluid was with 7615 white blood cells consistent with infectious bursitis - WC: Staphylococcus species, sensitivities pending - blood cultures: Negative at 48 hours Elbow x-ray is without bony abnormality or joint effusion continue on Zosyn/daptomycin pending culture results. - Patient is at increased risk of graft seeding due to his history of aortic aneurysm repair and bioprosthetic AVR, recommend broad coverage including MRSA coverage while cultures pending Ortho consulted - plan for I&D with Dr. Marley, today 09/07 (2) S/P aortic valve replacement with bioprosthetic valve: Plan: Bicuspid AV No acute cardiac symptoms. He is at increased risk of endocarditis for bacteremia. - Blood cultures negative at 48 hours (3) HLD (hyperlipidemia): Plan: Hyperlipidemia Statin held while on daptomycin Chronic stable issues History of AAA s/p repair: On every 2 year surveillance. No\shoulder blade plain, no acute symptoms. Continue outpatient surveillance. Hypertension: Well-controlled, continue lisinopril History of CAD: No acute cardiac symptoms, no preceding anginal/stiff neck symptoms Plan DVT prophylaxis: Lovenox Disposition: continued inpatient stay waiting cultures and sensitivities, OR today updated at bedside 09/07 Admission and Anticipated Discharge Date Admission Date: September 06, 2023 Supervising Physician Co-Signing Physician Notes Attending Attestation - Chart reviewed, care plan d/w FERNIE Kirk. I agree w/ the [place] components of her documentation. Appreciate orthopedic consultation. Blood cultures remain negative. Ilir Hampton MD Subjective Patient seen just prior to going down to the OR. having some pain in the right elbow but overall feeling well Review of Systems Review of Systems: All systems reviewed & are unremarkable except as noted in Subjective Physical Exam Physical Exam: General: NAD, ambulating in the room, VS as above Resp: normal respiratory effort, lungs clear to auscultation CV: RRR, Extremities: Moves all extremities, Right elbow with swelling and tenderness to the touch, elbow eythema worse than yesterday and fluid collection slightly more tense, surroudning cellulitis much improved. No streaking or signs of DVT. Neuro: A&O x3, Results & Data Results & Data Vital Signs (Past 12 Hours) Vital Signs Temp Pulse Resp BP Pulse Ox O2 Del Method 09/08/23 12:10 36.8 C 70 20 121/80 95 Room Air 09/08/23 07:24 36.6 C 63 18 106/69 96 Room Air Laboratory Results CBC and chemistry reviewed PG Care Time/CCT Total # of Minutes Spent Total Time Spent with Patient: Total time spent is greater than 50% in coordination of care (as documented) at patient's floor/unit and/or counseling patient: Coding Level of Care Code 93956 SUB INP/OBS CARE 3/50MIN Diagnoses Septic olecranon bursitis of right elbow M71.121 S/P aortic valve replacement with bioprosthetic valve Z95.3 HLD (hyperlipidemia) E78.5
[2023-09-08] MEDS: BUPIVACAINE/EPINEPHRINE 0.5% MPF 1:200,000 30 ML VIAL ONE (14:22)
--- NOTE | 2023-09-08 14:45 | Operative Report ---
PG Post Operative Report Pre & Post Diagnosis Operation Date: 09/08/23 12:30 Pre-Op Diagnosis: RIGHT INFECTIOUS OLECRONON BURSITIS Post-Op Diagnosis: RIGHT INFECTIOUS OLECRONON BURSITIS I identified the patient and participated in the time-out.: Yes Procedure Operation Date: 09/08/23 12:30 Actual Procedures p Right Elbow Septic Bursitis Incision and Drainage(Right) - Jorge Luis Marley MD Surgeon Jorge Luis Marley MD [facility] Bakari Vazquez PA-C Estimated Blood Loss 10 Findings Consistent with Post-Op Diagnosis Specimens Fluid sent for stat Gram stain aerobic and anaerobic culture. Right elbow tissue sent for pathology likely olecranon bursa Anesthesia Type General Complications none Disposition Accompanied Patient To Recovery: No Indications Patient is a 78-year-old very active gentleman whose had a several day history of increasing right arm pain discomfort and swelling up. He failed conservative measures on the outside was admitted to the hospital recently had aspiration olecranon bursa which was growing out gram-positive cocci. He had ascending cellulitis up to his arm as well. Patient had obvious fluid collection in the olecranon bursa. He was indicated for formal irrigation debridement and excision of the olecranon bursa. Description of Procedure The patient was taken the op room, identified, placed on the operating table in the supine position but all contractors were appropriately padded. IV antibiotics were provided preoperatively as per his preoperative protocol. A general anesthetic was implemented. Right upper extremity tourniquet was placed. The right arm was then prepped and draped in usual sterile fashion. The right arm was elevated exsanguinated with use of an Esmarch and a turn was placed at 300 mmHg. Posterior approach to the elbow was then performed to longitudinal incision. We made this essentially posterior to include the sinus tract that he had that had been draining at some point. We excised this entire tract. I then sharply and bluntly dissected out the olecranon bursa and excised it. We did send this for pathology. I then used a rongeur debride the olecranon tip as well as all soft tissue areas of any other necrotic appearing poorly vascularized tissue or bursa. I once this was complete I irrigated the wound with 3 L of pulsatile lavage solution. I then injected locally with 30 cc of half percent Marcaine with epinephrine. The tourniquet was then let down for final tourniquet time of 11 minutes. Hemostasis assured use electrocautery. Once again irrigated. The skin was then closed with 3-0 nylon suture and all vertical mattress fashion. The arm was then cleaned and dried and sterile dressing with Xeroform, 4 fours, sterile cast padding and a well-padded posterior splint was applied. A sling was then applied. The patient was then brought out of general anesthesia and transferred to the recovery in stable condition. Patient tolerated procedure well and there are no complications. Bakari Vazquez, physician insurance underwriting assistant, was present for the entire procedure. His assistance was required for proper patient positioning, prepping and draping, surgical exposure, retraction, perform the technical details of the operation and closure of the incision site. I attest to the content of the Intraoperative Record and any orders documented therein. Any exceptions are noted below.
--- NOTE | 2023-09-08 15:17 | Anesthesiology Progress Note ---
Date of Service September 08, 2023 Anesthesia Post Procedure Vital Signs Vital Signs: Temp Pulse Pulse Resp BP Pulse Ox O2 Del Method 09/08/23 15:10 36.7 C 73 20 124/66 94 Room Air 09/08/23 15:00 77 18 108/68 94 Room Air 09/08/23 14:50 82 14 130/72 98 Room Air 09/08/23 14:39 36.1 C L 89 14 115/62 94 Oxymask 09/08/23 12:10 36.8 C 70 20 121/80 95 Room Air 09/08/23 07:24 36.6 C 63 18 106/69 96 Room Air 09/07/23 19:30 36.7 C 73 16 108/70 94 Room Air O2 Flow Rate 09/08/23 15:10 09/08/23 15:00 09/08/23 14:50 09/08/23 14:39 8 09/08/23 12:10 09/08/23 07:24 09/07/23 19:30 Pain Intensity Right Elbow: Pain Intensity: 7 Transfer of Care Handoff Completed per policy Notes Mental Status: alert / awake / arousable Patient Amnestic to Procedure: Yes Nausea / Vomiting: adequately controlled Pain: adequately controlled Airway Patency, RR, SpO2: stable & adequate BP & HR: stable & adequate Hydration State: stable & adequate Anesthetic Complications: no major complications apparent
[2023-09-08] MEDS ORDERED: TAMSULOSIN HCL 0.4 MG CAP PO PRN (15:37)
[2023-09-08] MEDS ORDERED: MAGNESIUM HYDROXIDE SUSP 30 ML UDC PO PRN (15:37)
[2023-09-08] MEDS ORDERED: bisacodyL 10 MG SUPP PR PRN (15:37)
[2023-09-08] MEDS ORDERED: NALOXONE HCL 0.4 MG/1 ML VIAL/CARP IV PRN (15:37)
[2023-09-08] MEDS ORDERED: METOCLOPRAMIDE HCL INJ 5 MG/ML 2 ML VIAL IV PRN (15:37)
[2023-09-08] MEDS: SODIUM CHLORIDE 0.9% 1,000 ML IV SCH (15:48)
[2023-09-08] MEDS: ACETAMINOPHEN 500 MG TAB PO SCH (21:15)
[2023-09-08] MEDS: DOCUSATE SODIUM 100 MG CAP PO SCH (21:16)
[2023-09-08] MEDS: SENNA 8.6 MG TAB PO SCH (21:16)
[2023-09-09 06:32] LABS: Basophils # (auto) 0.03 K/uL (0.00-0.20); Basophils % (auto) 0.4 %; Eosinophils # (auto) 0.07 K/uL (0.00-0.50); Eosinophils % (auto) 0.9 %; Hematocrit (blood only) 34.9 % (42.0-52.0); Hemoglobin 11.7 g/dl (14.0-18.0); Immature Granulocytes # (auto) 0.02 K/uL (0.01-0.20); Immature Granulocytes % (auto) 0.2 %; Lymphocytes # (auto) 1.27 K/uL (1.20-3.40); Lymphocytes % (auto) 15.9 %; Mean Corpuscular Hemoglobin 32.1 pg (25.0-34.0); Mean Corpuscular Hgb Conc 33.5 g/dL (32.0-36.0); Mean Corpuscular Volume 95.9 fL (80.0-100.0); Mean Platelet Volume 10.3 fL (9.4-12.4); Monocytes # (auto) 0.71 K/uL (0.11-0.59); Monocytes % (auto) 8.9 %; Neutrophils # (auto) 5.91 K/uL (1.40-6.50); Neutrophils % (auto) 73.7 %; Platelet Count 157 K/uL (130-400); RDW Coefficient of Variation 11.8 % (11.5-14.5); RDW Standard Deviation 41.2 fL (36.4-46.3); Red Blood Count 3.64 M/uL (4.70-6.10); White Blood Count 8.01 K/ul (4.8-10.8)
[2023-09-09 06:43] LABS: BUN Creatinine Ratio 21.6 (10-20); Calcium 9.9 mg/dl (8.6-10.3); Creatinine Clr Calc Pharmacy 52.5 ml/min; Est GFR (African American) 69.5 ml/min; Potassium 4.2 mmol/L (3.5-5.1)
--- NOTE | 2023-09-09 07:51 | Surgery Progress Note ---
Date of Service September 09, 2023 Assessment & Plan (1) Septic olecranon bursitis of right elbow: Plan: 78-year-old gentleman postop day 1 from I&D and excision of a septic olecranon bursitis doing reasonably well. He is improving. Just waiting for the sensitivities to come back. Plan: Patient is postop day 1. Working to leave this dressing on for 2 weeks. Will get a mobilize elbow and hopefully get this wound to heal. He is clinically improving. Once the sensitivities are back and was sure he is on the right antibiotics I think he can be converted to p.o. antibiotics and sent home. I need to see him back about 2 weeks out from surgery date. He should have 2 weeks of p.o. antibiotics until I see him back. Any orthopedic questions can direct me at [phone] Admission and Anticipated Discharge Date Admission Date: September 06, 2023 Subjective 78-year-old gentleman postop day 1 from I&D excision of a septic olecranon bur sa. He is doing pretty well this morning. Did not have a great night of sleeping. No new complaints. No chest pain or shortness of breath. Physical Exam Physical Exam: Physical examination is a pleasant elderly male. Lying bed looks pretty comfortable this morning. Examination of the right arm and reveals the dressing be clean dry and intact. He can flex extend his fingers and wrist appropriately. He is neurologically intact. Results & Data Vital Signs (Past 12 Hours) Vital Signs Temp Pulse Resp BP Pulse Ox O2 Del Method 09/09/23 03:46 36.7 C 62 18 103/62 96 Room Air 09/08/23 23:00 37.1 C 75 20 102/58 L 94 Room Air 09/08/23 20:17 37.2 C 74 18 111/65 96 Room Air Laboratory Results Gram stain results reveals no organisms. Initial culture results are showing staph species. Sensitivities are still pending PG Care Time/CCT Total # of Minutes Spent Total Time Spent with Patient: Total time spent is greater than 50% in coordination of care (as documented) at patient's floor/unit and/or counseling patient: Coding Level of Care Code None Diagnoses Septic olecranon bursitis of right elbow M71.121
[2023-09-09] MEDS: MULTIVITAMIN TAB PO SCH (08:56)
[2023-09-09] MEDS: AMPICILLIN/SULBACTAM SOD 3,000 MG in SODIUM CHLOR 0.9% MINI-B 100 ML IV SCH (09:06)
--- NOTE | 2023-09-09 14:02 | Discharge Summary ---
Discharge Summary Date of Service September 09, 2023 Principal Dx & Hospital Course #1 = Principal Diagnosis (1) Septic olecranon bursitis of right elbow: Right olecranon bursitis S/p fluid aspiration in the ED. Initial fluid was with 7615 white blood cells consistent with infectious bursitis - WC (ER): Staphylococcus species, sensitivities pending - Discussed with microbiology lab, slow-growing may take multiple days to grow - WC (OR): no growth to date - blood cultures: Negative at 48 hours Elbow x-ray is without bony abnormality or joint effusion received Zosyn/daptomycin, discharged with Keflex and doxycycline given staff aureus sensitivities still pending and at increased risk for MRSA with bioprosthetic valve Ortho consulted - s/p I&D with Dr. Marley, 09/07 - remain in sling with dressing on until follow-up in 2 weeks - oral antibiotics until follow-up (2) S/P aortic valve replacement with bioprosthetic valve: Bicuspid AV No acute cardiac symptoms. He is at increased risk of endocarditis for bacteremia. - Blood cultures negative at 48 hours (3) HLD (hyperlipidemia): Hyperlipidemia Statin held while on daptomycin, resume at discharge Chronic stable issues History of AAA s/p repair: On every 2 year surveillance. No\shoulder blade plain, no acute symptoms. Continue outpatient surveillance. Hypertension: Well-controlled, continue lisinopril History of CAD: No acute cardiac symptoms, no preceding anginal/stiff neck symptoms Plan dispo: Discharged home today updated at bedside 09/07 & 09/08 Notes For Next Care Provider presented with olecranon bursitis with that is failed outpatient treatment. I&D performed on 09/07. initial culture growing Staph aureus, sensitivities still remain pending on day 3 but later OR culture without growth. Will cover empirically for MRSA at discharge Medication Changes From Visit Keflex 3 times daily and doxycycline twice daily x 14 days Admission HPI Per Admitting Provider Mr. Madrigal is a 78-year-old male with past medical history of bioprosthetic AV replacement, CAD, prostate adenocarcinoma, GERD, hypertension, past thoracic aortic aneurysm repair, and thyroid nodules presents on referral from [facility] urgent care for right elbow cellulitis failing outpatient treatment and with continued expansion over the last 7 days. Patient was suspected to have right olecranon bursitis while in the ER, this was aspirated and a cc of cloudy fluid was removed and sent for culture/analysis. Carlos Alberto was seen at the bedside with his . He reports his symptoms actually started 3 days ago, on Monday. Noted some swelling and pain at his elbow which gradually worsened and yesterday pulled a small amount of yellow crust off and it had purulent drainage. Elbow has continued to be warm, red, and tender. He has not had fevers chills or sweats. It is tender with movement but feels greatly improved following his bursa aspiration. He had been on doxycycline for approximately 2 days, but notes that had a delay in filling this prescription. Denies antibiotic allergies. He has a history of aortic valve replacement and aorta repair, both are doing well on every 2 year surveillance. He says he is very active and walks at least a mile a day with no chest pain, chest pressure, or limiting dyspnea symptoms recently. He is a former smoker, no recent use. He drinks 1-3 light beers per day, no history of alcohol withdrawal or difficulty going without alcohol. Full code. Discharge Exam General: NAD, ambulating in the room, VS as above Resp: normal respiratory effort, lungs clear to auscultation CV: RRR, Extremities: Moves all extremities, Right arm wrapped in Milad wrap and in sling. Able to move distal fingers, mild edema to fingers - patient states this is improved Updated Medication List Medication Instructions Recorded Confirmed Type aspirin 81 mg tablet,delayed 81 mg PO DAILY 11/11/18 09/06/23 History release cholecalciferol (vitamin D3) 25 2,000 unit PO DAILY 12/10/20 09/06/23 History mcg (1,000 unit) capsule polyethylene glycol 3350 17 gram 17 g PO DAILY PRN Constipation 12/10/21 09/06/23 History oral powder packet (Miralax) ascorbate calcium (vitamin C) 500 500 mg PO DAILY 10/04/22 09/06/23 History mg tablet lisinopril 10 mg tablet 10 mg PO DAILY #90 tabs 12/12/22 09/06/23 Rx atorvastatin 40 mg tablet 40 mg PO HS #90 tabs 02/01/23 09/06/23 Rx amoxicillin 500 mg capsule 2,000 mg PO .COMPLEX PRN Other 09/06/23 09/06/23 History cephalexin 500 mg capsule 500 mg PO TID 14 days #42 caps 09/09/23 Rx doxycycline hyclate 100 mg tablet 100 mg PO BID 14 days #28 tabs 09/09/23 Rx Hospital Stay Data Consultations 09/06/23 12:24 ED Decision to Admit Stat 09/07/23 10:57 Consult Orthopedic Surgery Routine Procedures Performed Operation Date: 09/08/23 12:30 Actual Procedures p Right Elbow Septic Bursitis Incision and Drainage(Right) - Jorge Luis Marley MD Diagnostic Imagining Performed Elbow X-Ray 09/06/23 11:22 XR elbow RT min 3V routine CLINICAL HISTORY: ?septic bursitis TECHNIQUE: 3 views of the right elbow were obtained. Comparison: None available at the time of this dictation. FINDINGS: There is no evidence of an acute fracture. Degenerative changes are seen in the elbow joint. There is no prominence of the anterior or posterior fat pads to suggest an effusion. No soft tissue abnormality is seen. IMPRESSION: No acute bony abnormality. No joint effusion is seen. ACT 112: Negative or not required by law. Electronically signed by: Alvino Coffey M.D. 09/06/2023 11:54 AM Pending Results Patient Have Any Pending Studies at Discharge: No Discharge Instructions Given to Patient (Per Discharging Provider) Mr. Reyes, You were hospitalized after worsening infection of your right elbow. You were seen by orthopedics who took you to the OR for an incision and drainage of your olecranon bursa. Unfortunately, your cultures are still not finalized and there is a risk that you are growing MRSA in your wound. For this reason you will be treated with 2 antibioticsKeflex and doxycycline. Please take these as prescribed, you will be on extended course until you see Dr. Marley in follow-up . Doxycycline may cause stomach upset and would recommend taking with food. No changes were made to your home medications. You can take Tylenol for pain. Medications: Take your medications as instructed; do not skip a dose of your medicines. Make sure all of your doctors know every medicine you are taking (including [id number] medicines, vitamins, and supplements). Call your primary care provider before taking any new medicines (including over- the-counter medicines, vitamins, and supplements), because some of these may interact with your current medications, or may make your symptoms worse. Tell your primary care provider if you cannot afford your medications. Activity: You can do normal everyday activities as your body allows. Take rest breaks if you feel tired. Do not overexert. Stop activity if you have pain, shortness of breath or feel dizzy. Use the sling at all times. Follow-up appointments: Make an appointment with your primary care physician within one week of discharge. A copy of this summary will be sent to them. Every time you see your primary care physician, or any other doctor, bring your medication list, and a list of questions. CONTACT YOUR PRIMARY CARE PROVIDER if you experience any of the following: Shortness of breath or difficulty breathing Fevers or chills Feeling tired with normal activity or experiencing dizziness or fainting Difficulty following your treatment plan, or difficulty taking medications CALL 911 OR GO TO THE EMERGENCY DEPARTMENT if you experience any of the following: Severe abdominal pain or nausea/vomiting Severe chest pain, or chest pain that radiates (moves) to your jaw or arm Sudden, severe shortness of breath or difficulty breathing Thank you for allowing us to participate in your care. Total Time Total Time Spent Total Time Spent (In Minutes): Time spend day of discharge 40 minutes including direct patient care, medication reconciliation, documentation, review of labs and images, and coordination of care. Coding Level of Care Code 98524 INP/OBS DISCH >30 MIN Diagnoses Septic olecranon bursitis of right elbow M71.121 S/P aortic valve replacement with bioprosthetic valve Z95.3 HLD (hyperlipidemia) E78.5
== END 2023-09-09 14:35 | disposition home or self-care (01) | DRG 501 ==
LOC: ED 10:03 → 3E 12:57 → SUATTDRO 12:57 → 3E 15:42